=== PATIENT | male | born 1945 | race Caucasian/White ===

== ENCOUNTER 2017-01-19 09:18 | Emergency (ER) | payer MEDICARE, OTHER ==
[2017-01-19 09:31] VITALS: BP 141/63
--- NOTE | 2017-01-19 11:30 | UC ---
Respiratory Complaint HPI - HPI Summary HPI Summary: RETURNED [place] ABOUT A WEEK AGO AND THEN DEVELOPED ST, COUGH AND RED, DRAINING EYES. NO FEVER, EAR PAIN, N/V/D. SX ARE WORSE AT NIGHT AND IN THE MORNING. TRIED TO WAIT IT OUT BUT AFTER A WEEK DOES NOT FEEL IMPROVED AT ALL. IS ON IMMUNOSUPPRESSIVE THERAPY FOR CROHNS. - History of Current Complaint Chief Complaint: UCRespiratory Stated Complaint: URI Time Seen by Provider: 01/19/17 11:02 Hx Obtained From: Patient, Family/Hat Block Bench Hand - Onset/Duration: Gradual Onset, Lasting Days, Still Present Timing: Constant Severity Initially: Moderate Severity Currently: Moderate Pain Intensity: 2 Pain Scale Used: 0-10 Numeric Character: Cough: Nonproductive Aggravating Factors: Recumbent Position Alleviating Factors: Nothing Associated Signs And Symptoms: Positive: URI. Negative: Dyspnea, Fever, Chills , Pleuritic Chest Pain, Wheezing, Edema, Nasal Congestion - Allergies/Home Medications Allergies/Adverse Reactions: Allergies Allergy/AdvReac Type Severity Reaction Status Date / Time No Known Allergies Allergy Verified 01/19/17 09:31 Home Medications: Home Medications Adalimumab [Humira] 10 mg SC 01/19/17 [History] GuaiFENesin DM* [Robitussin DM*] 5 ml PO Q6H PRN 01/19/17 [History Confirmed ] predniSONE TAB* [Deltasone TAB*] 5 mg PO DAILY 01/19/17 [History Confirmed 01/19] PMH/Surg Hx/FS Hx/Imm Hx Endocrine History: Dyslipidemia Other GI/ History: CROHNS Psychological History: Depression - Surgical History Surgical History: Yes Surgery Procedure, Year, and Place: TONSILECTOMY. LYPOMA REMOVED FROM GROIN AREA - Family History Known Family History: Negative: Hypertension - Social History Alcohol Use: Daily Alcohol Amount: weekends/social Substance Use Type: None Smoking Status (MU): Never Smoked Tobacco Have You Smoked in the Last Year: No Review of Systems Constitutional: Negative Eyes: Drainage, Eye Redness ENT: Sore Throat Respiratory: Cough Cardiovascular: Negative Gastrointestinal: Negative All Other Systems Reviewed And Are Negative: Yes Physical Exam Triage Information Reviewed: Yes Appearance: Well-Appearing, No Pain Distress, Well-Nourished Vital Signs: Initial Vital Signs Temp 97.3 F 01/19/17 09:26 Pulse 83 01/19/17 09:26 Resp 18 01/19/17 09:26 BP 141/63 01/19/17 09:26 Pulse Ox 99 01/19/17 09:26 Eyes: Positive: Conjunctiva Inflamed, Discharge - CLEAR ENT: Positive: Hearing grossly normal, Pharynx normal, TMs normal Neck: Positive: Supple, Nontender, No Lymphadenopathy Respiratory Exam: Normal Cardiovascular Exam: Normal Abdomen Description: Positive: Soft Musculoskeletal: Positive: No Edema Neurological: Positive: Alert Psychological: Positive: Normal Response To Family, Age Appropriate Behavior Skin: Negative: rashes UC Diagnostic Evaluation - Laboratory O2 Sat by Pulse Oximetry: 99 Respiratory Course/Dx - Differential Dx/Diagnosis Provider Diagnoses: 1. ACUTE URI. 2. BILATERAL CONJUNCTIVITIS Discharge - Discharge Plan Condition: Stable Disposition: HOME Prescriptions: Azithromycin [Azithromycin 500 MG TAB] 500 mg PO DAILY #5 tab Ciprofloxacin 0.3% OPTH.JOE* [Cipro 0.3% Opth*] 1 drop BOTH EYES Q4H #1 btl Patient Education Materials: Upper Respiratory Infection (ED), Conjunctivitis ( ED) Referrals: Bert Montiel MD [Primary Care Provider] - If Needed Additional Instructions: YOUR SYMPTOMS MAY BE VIRALLY MEDIATED BUT GIVEN THE LENGTH OF TIME YOU HAVE BEEN ILL WE WILL COVER YOUR WITH ANTIBIOTICS. YOUR IMMUNOSUPPRESSED STATE ALSO PUTS YOU AT INCREASED RISK FOR BACTERIAL INFECTION. IF YOU START THE MEDICINE BE SURE TO TAKE IT FOR THE FULL COURSE. SEEK FOLLOW-UP WITH YOUR PCP IF YOU ARE NOT IMPROVING OVER THE NEXT 1-2 WEEKS.
== END 2017-01-19 11:46 | disposition home or self-care (01) ==
LOC: UCEAST 09:18
DX: J06.9 Acute upper respiratory infection, unspecified (principal); E78.5 Hyperlipidemia, unspecified; K50.90 Crohn's disease, unspecified, without complications; H10.9 Unspecified conjunctivitis
CPT/HCPCS: 99212; G0463

== ENCOUNTER 2017-02-15 13:41 | Emergency (ER) | payer MEDICARE, OTHER ==
[2017-02-15 14:50] VITALS: BP 109/60
[2017-02-15] MEDS ORDERED: Albuterol 2.5 MG/3 ML NEB.SOL* (0.083%) INH ONE (14:54)
--- NOTE | 2017-02-15 15:08 | UC ---
Respiratory Complaint HPI - HPI Summary HPI Summary: Patient presents s/p cruise following which he developed a cough. He was seen here and treated for respiratory infection with a zpk and reports he continues to cough. He states it is a dry cough. He denies fever, chills, chest pain, or dyspnea associated with his symptoms. He reports he is on Humira for his chrons disease. - History of Current Complaint Chief Complaint: UCRespiratory Stated Complaint: COUGH Time Seen by Provider: 02/15/17 14:45 Hx Obtained From: Patient Onset/Duration: Lasting Weeks Timing: Intermittent Episodes Severity Initially: Moderate Severity Currently: Moderate Character: Cough: Nonproductive Aggravating Factors: Deep Breaths, Recumbent Position Alleviating Factors: Upright Position, Spontaneous Resolution Associated Signs And Symptoms: Positive: URI Related History: Seasonal Allergies - Risk Factors Pulmonary Embolism Risk Factors: Negative Cardiac Risk Factors: Negative Tuberculosis Risk Factors: Negative - Allergies/Home Medications Allergies/Adverse Reactions: Allergies Allergy/AdvReac Type Severity Reaction Status Date / Time No Known Allergies Allergy Verified 02/15/17 14:37 Home Medications: Home Medications Adalimumab [Humira Pen] 40 mg SC 02/15/17 [History] Carbonyl Iron TAB* [Feosol TAB*] 45 mg PO DAILY 02/15/17 [History Confirmed ] Mercaptopurine TAB* [Purinethol TAB*] 50 mg PO 02/15/17 [History Confirmed 02/15] PMH/Surg Hx/FS Hx/Imm Hx Previously Healthy: Yes Other GI/ History: chrons - Surgical History Surgical History: Yes Surgery Procedure, Year, and Place: TONSILECTOMY. LYPOMA REMOVED FROM GROIN AREA - Family History Known Family History: Negative: Hypertension - Social History Occupation: Retired Lives: With Family Alcohol Use: None Alcohol Amount: weekends/social Substance Use Type: None Smoking Status (MU): Never Smoked Tobacco Have You Smoked in the Last Year: No - Immunization History Most Recent Influenza Vaccination: 2017 Most Recent Pneumonia Vaccination: states 3-4 yrs ago Review of Systems Constitutional: Negative Skin: Negative Eyes: Negative ENT: Negative Respiratory: Cough Cardiovascular: Negative Gastrointestinal: Negative Genitourinary: Negative Motor: Negative Neurovascular: Negative Musculoskeletal: Negative Neurological: Negative Psychological: Negative All Other Systems Reviewed And Are Negative: Yes Physical Exam Triage Information Reviewed: Yes Appearance: Well-Appearing Vital Signs: Initial Vital Signs Temp 98.2 F 02/15/17 14:42 Pulse 70 02/15/17 14:42 Resp 20 02/15/17 14:42 BP 109/60 02/15/17 14:42 Pulse Ox 95 02/15/17 14:42 Vital Signs Reviewed: Yes Eye Exam: Normal ENT Exam: Normal Neck exam: Normal Neck: Positive: 1 Respiratory: Positive: Other: - course lung sounds Cardiovascular Exam: Normal Abdominal Exam: Normal Musculoskeletal Exam: Normal Neurological Exam: Normal Psychological Exam: Normal Skin Exam: Normal UC Diagnostic Evaluation - Laboratory O2 Sat by Pulse Oximetry: 95 Respiratory Course/Dx - Course Course Of Treatment: Patient presents with complaints of persistent cough following URI for which he was treated with zpk. Chest xray was obtained and read as negative by the radiologist. He has a normal exam, and normal vital signs, and has been afebrile. He was given an albuterol nebulzier treatment in the clinic today with reported improvment while here with his cough, therefore was RX albuteril hfa 2 inh q 4 hours as needed, and I also recommend that he start takin his loratadine daily. As his symptom improve to decrease the medication. I feel his symptoms are two fold reactive airway and allergic rhinitis. If his symtpoms do not improve to f/u with PCP. He was discharge home in stable condition. - Differential Dx/Diagnosis Differential Diagnosis/HQI/PQRI: Other - reactive airway allergic rhinitis Provider Diagnoses: reactive airway. allergic rhinitis Discharge - Discharge Plan Condition: Stable Disposition: HOME Prescriptions: Albuterol 2.5MG/3ML (0.083%)* [Ventolin 2.5 MG/3 ML NEB.JOE*] 2.5 mg INH Q4H #1 [email or web address] Patient Education Materials: Allergic Rhinitis (ED), Reactive Airways Disease ( ED) Referrals: Bert Montiel MD [Primary Care Provider] -
--- NOTE | 2017-02-15 15:13 | RAD ---
INDICATION: Cough x3 weeks COMPARISON: None TECHNIQUE: PA and lateral views of the chest were obtained. FINDINGS: The heart and mediastinum are normal in size and contour. There is mild calcified atherosclerosis overlying the arch of the aorta. The lungs are grossly clear. There is no evidence of large pleural effusion. Visualized bones are normal for the patient's age. There is no radiographic evidence of free air beneath the diaphragm IMPRESSION: No radiographic evidence of acute cardiopulmonary disease.
== END 2017-02-15 16:09 | disposition home or self-care (01) ==
LOC: UCEAST 13:41
DX: J45.909 Unspecified asthma, uncomplicated (principal)
CPT/HCPCS: 71020; 99212; G0463

== ENCOUNTER 2017-03-05 13:56 | Emergency (ER) | payer MEDICARE, OTHER ==
[2017-03-05 15:27] VITALS: BP 123/56
--- NOTE | 2017-03-05 15:46 | UC ---
Neck Pain HPI - HPI Summary HPI Summary: 4-5 days of left posterior shoulder muscle zapping pain and muscle tightness-- no neuro deficits no rash other no feels fine - History of Current Complaint Chief Complaint: UCGeneralIllness Stated Complaint: STRAINED MUSCLE Time Seen by Provider: 03/05/17 15:40 Hx Obtained From: Patient Onset/Duration Of Injury/Symptoms: Days Mechanism Of Injury: No Known Trauma Timing: Constant Onset/Duration: Sudden Onset Severity: Mild Pain Intensity: 5 Pain Scale Used: 0-10 Numeric Location: Discrete At: - posterior left shoulder/above scapula Character: Spasmotic Aggravating Factors: Nothing Alleviating Factors: Nothing Associated Signs & Symptoms: Positive: Negative - Allergies/Home Medications Allergies/Adverse Reactions: Allergies Allergy/AdvReac Type Severity Reaction Status Date / Time No Known Allergies Allergy Verified 03/05/17 15:27 PMH/Surg Hx/FS Hx/Imm Hx Previously Healthy: No - crohns Endocrine History: Dyslipidemia - Surgical History Surgical History: Yes Surgery Procedure, Year, and Place: TONSILECTOMY. LYPOMA REMOVED FROM GROIN AREA - Family History Known Family History: Negative: Hypertension - Social History Occupation: Retired Lives: With Family Alcohol Use: Daily Alcohol Amount: weekends/social Substance Use Type: None Smoking Status (MU): Never Smoked Tobacco Have You Smoked in the Last Year: No - Immunization History Most Recent Influenza Vaccination: 2017 Most Recent Pneumonia Vaccination: states 3-4 yrs ago Review Of Systems Constitutional: Positive: Negative Skin: Positive: Negative Eyes: Positive: Negative ENT: Positive: Negative Respiratory: Positive: Negative Cardiovascular: Positive: Negative Gastrointestinal: Positive: Negative Genitourinary: Positive: Negative Musculoskeletal: Positive: Myalgia - above left scapula, tender to touch Neurological: Positive: Negative Psychological: Positive: Negative All Other Systems Reviewed And Are Negative: Yes Physical Exam Triage Information Reviewed: Yes Appearance: Well-Appearing, No Pain Distress, Well-Nourished Vital Signs: Initial Vital Signs Temp 97.5 F 03/05/17 15:23 Pulse 71 03/05/17 15:23 Resp 18 03/05/17 15:23 BP 123/56 03/05/17 15:23 Pulse Ox 100 03/05/17 15:23 Vital Signs Reviewed: Yes Eye Exam: Normal Eyes: Positive: Conjunctiva Clear ENT Exam: Normal ENT: Positive: Normal ENT inspection, Hearing grossly normal. Negative: Nasal congestion, Trismus, Muffled voice, Hoarse voice Dental Exam: Normal Neck exam: Normal Neck: Positive: Supple, Nontender Respiratory Exam: Normal Respiratory: Positive: Chest non-tender, No respiratory distress, No accessory muscle use Cardiovascular Exam: Normal Cardiovascular: Positive: RRR, Pulses Normal, Brisk Capillary Refill Musculoskeletal Exam: Normal Musculoskeletal: Positive: Strength Intact, ROM Intact, No Edema Neurological Exam: Normal Neurological: Positive: Alert, Muscle Tone Normal Psychological Exam: Normal Skin Exam: Normal Neck Pain Course/Dx - Course Course Of Treatment: warm compress, gentle exercise, tylenol, zanaflex, follow with Dr. Montiel - Differential Dx/Diagnosis Provider Diagnoses: Muscle spasm (suprapinadis) Discharge - Discharge Plan Condition: Stable Disposition: HOME Prescriptions: tiZANidine TAB* [Zanaflex TAB*] 2 mg PO TID PRN #20 tab PRN Reason: Muscle spasm Patient Education Materials: Muscle Spasm (ED), Warm Compress or Soak (ED) Referrals: Bert Montiel MD [Primary Care Provider] - 1 Week
== END 2017-03-05 15:55 | disposition home or self-care (01) ==
LOC: UCEAST 13:56
DX: M62.838 Other muscle spasm (principal)
CPT/HCPCS: 99212; G0463

== ENCOUNTER 2017-07-21 08:22 | Emergency (ER) | payer MEDICARE, OTHER ==
--- OUTSIDE RECORDS SUMMARY | 2017-07-21 08:30 | XMS REPORT ---
:1945 External Reference #:[id number] Author Organization [facility] [address] [place] [address] Phone [phone] Care Team Providers Name Role Phone Bert Montiel M.D. 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 Family History Date Family Member(s) Problem(s) Comments Father No Current Problems Mother No Current Problems First Brother Glaucoma Social History Type Date Description Comments Marital Status Legal Status: Occupation [employer] Work Status Retired ETOH Use Occasionally consumes alcohol Smoking Patient has never smoked Recreational Drug Use Denies Drug Use Daily Caffeine Does Not Consume Caffeine Allergies, Adverse Reactions, Alerts Date Description Reaction Status Severity Comments 06/28/2017 NKDA active Medications Medication Date Status Form Strength Qnty SIG Indications Ordering Provider Fish Oil 06/28/19 Active Capsules 1000mg 1 by Juan Carlos 18 arabella Garcia, every M.D. day Simvastatin Active Tablets 20mg Unknown Prednisone Active Tablets 5mg Unknown Humira Active PSKT 40mg/0.8ML Unknown Zinc Active Capsules 30mg Unknown Iron Active Tablets 28mg Unknown Multi Vitamin Active Tablets Unknown Calcium + D Active Chewtabs 500-1000-40 Unknown 00 mg-Unt-mcg Results Description No Information Procedures Description No Information Plan of Care 06/28/2017 - Juan Carlos Garcia M.D.H11.441 Conjunctival cysts, right eyeComments :Smoking can increase the risk of developing or worsening any eye related disease, as well as affect your overall health. If you are a smoker, we strongly recommend that you quit.If you are not a smoker, we strongly recommend that you do not start. ARTIFICIAL INTELLIGENCE SPECIALIST THE OINTMENT FROM THE PHARMACY AND BRING IT WITH YOU TO THE NEXT VISIT.H25.13 Age-related nuclear cataract, bilateralComments:You have been diagnosed with cataracts. If you are happy with your vision as it is now, then we willsee you at your next scheduled appointment. If you feel like your vision is getting worse before your scheduled appointment, please call Sharonda or Josselin at [phone].H40.053 Ocular hypertension, bilateralComments:You have Ocular Hypertension in both eyes. This means that your eye pressure is higher than average, but you have not been diagnosed with Glaucoma.
--- OUTSIDE RECORDS SUMMARY | 2017-07-21 08:30 | XMS REPORT ---
:1945 External Reference #:[id number] Author Organization [facility] Address [address] [place] [address] Phone [phone] Care Team Providers Name Role Phone Bert Montiel M.D. 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 Active Family History Date Family Member(s) Problem(s) Comments Father Cataract Father Eye Visual Problems Mother Eye Visual Problems First Brother Glaucoma First Brother Eye Visual Problems First Brother Nystagmus Social History Type Date Description Comments Marital Status Legal Status: Occupation [employer] Work Status Retired ETOH Use Occasionally consumes alcohol Smoking Patient has never smoked Recreational Drug Use Denies Drug Use Daily Caffeine Does Not Consume Caffeine Allergies, Adverse Reactions, Alerts Date Description Reaction Status Severity Comments 06/28/2017 NKDA active Medications Medication Date Status Form Strength Qnty SIG Indications Ordering Provider Fish Oil 06/27/ Active Capsules 1000mg 1 by mouth Juan Carlos Archuleta every day Mary Garcia Simvastatin / Active Tablets 20mg Unknown Prednisone 00/ Active Tablets 5mg Unknown Humira / Active PSKT 40mg/0.8ML Unknown 0000 Iron / Active Tablets 28mg Unknown 0000 Multi Vitamin / Active Tablets Unknown 0000 Calcium + D / Active Chewtabs 500-1000-4 Unknown 0000 0mg-Unt-mc g Venlafaxine / Active Tablets ER 150mg Once a day Breiman, HCL ER 0000 24HR Bert Hernandez Erythromycin 06/28/ Hx Ointment 5mg/GM 1Tube apply to Juan Carlos 2017 - surgical Radha, 07/17/ site three M.D. 2018 times a day Zinc / Hx Capsules 30mg Unknown 0000 - 2017 Vital Signs Date Vital Result Comment 07/04/2017 BP Systolic 114 mmHg BP Diastolic 76 mmHg Heart Rate 83 /min Respiratory Rate 16 /min Results Description No Information Procedures Date CPT Code Description Status 07/04/2017 05387 Biopsy Conjunctiva Completed 06/28/2017 23562 New Patient Comprehensive Exam Completed 06/28/2017 64530 Pachymetry Completed Plan of Care 07/18/2017 - Juan Carlos Garcia M.D.H11.441 Conjunctival cysts, right eyeComments :Smoking can increase the risk of developing or worsening any eye related disease, as well as affect your overall health. If you are a smoker, we strongly recommend that you quit.If you are not a smoker, we strongly recommend that you do not start.H43.811 Vitreous degeneration, right eyeComments:You have a Posterior Vitreous Detachment in your right eye. If you have any changes in your floatersor flashing lights, please contact this office.H25.13 Age-related nuclear cataract, bilateralComments:You have been diagnosed with cataracts. If you are happy with your vision as it is now, then we willsee you at your next scheduled appointment. If you feel like your vision is getting worse before your scheduled appointment, please call Sharonda Schwab at [phone].C54.662 Ocular hypertension, bilateralComments:You have Ocular Hypertension in both eyes. This means that your eye pressure is higher than average, but you have not been diagnosed with Glaucoma.Follow up:WITH DR. RENAE SCHEDULED
[2017-07-21 08:33] VITALS: BP 109/68
--- NOTE | 2017-07-21 14:08 | UC ---
Hip/Pelvis Pain - HPI Summary HPI Summary: States that 2 weeks ago he had eye surgery after which he felt an intense pain on left hip. He could not sleep that night and took vicodin which alleviated pain. He states that he was fine for a week after that. But then last Sunday his knee buckled and he fell on left knee as he was playing tennis. He has continued playing tennis ever since and hip does not bother him or limit his activities during the day but at night he cannot find a comfortable position. It is an ache in the lateral left hip which rarely travels down the back of the leg 4/10 in intensity - History Of Current Complaint Chief Complaint: UCGeneralIllness Stated Complaint: HIP PAIN Time Seen by Provider: 07/21/17 09:04 Hx Obtained From: Patient Onset/Duration: Sudden Onset, Lasting Weeks Severity Initially: Mild Severity Currently: Moderate Pain Intensity: 5 Pain Scale Used: 0-10 Numeric Character Of Pain: Aching Aggravating Factor(s): Other - recumbence Alleviating Factor(s): Other - activity Associated Signs And Symptoms: Positive: Negative - Risk Factors Septic Arthritis Risk Factor: Negative - Allergies/Home Medications Allergies/Adverse Reactions: Allergies Allergy/AdvReac Type Severity Reaction Status Date / Time No Known Allergies Allergy Verified 07/21/17 08:26 PMH/Surg Hx/FS Hx/Imm Hx Previously Healthy: Yes Endocrine History: Dyslipidemia GI/ History: Other - crohn's disease Other GI/ History: Crohn's disease Psychological History: Depression - Surgical History Surgical History: Yes Surgery Procedure, Year, and Place: TONSILECTOMY,eye =surgery. LYPOMA REMOVED FROM GROIN AREA - Family History Known Family History: Negative: Hypertension - Social History Alcohol Use: Daily Alcohol Amount: weekends/social Substance Use Type: None Smoking Status (MU): Never Smoked Tobacco Have You Smoked in the Last Year: No - Immunization History Most Recent Influenza Vaccination: 2017 Most Recent Pneumonia Vaccination: states 3-4 yrs ago Review of Systems Constitutional: Negative Musculoskeletal: Myalgia All Other Systems Reviewed And Are Negative: Yes Physical Exam Triage Information Reviewed: Yes Appearance: Well-Appearing, No Pain Distress, Well-Nourished Vital Signs: Initial Vital Signs Temp 97.6 F 07/21/17 08:30 Pulse 82 07/21/17 08:30 Resp 18 07/21/17 08:30 BP 109/68 07/21/17 08:30 Pulse Ox 100 07/21/17 08:30 Vital Signs Reviewed: Yes Eyes: Positive: Conjunctiva Clear ENT: Positive: Hearing grossly normal, Pharynx normal, TMs normal Neck: Positive: Supple, Nontender, No Lymphadenopathy Respiratory: Positive: Chest non-tender, Lungs clear, Normal breath sounds, No respiratory distress Cardiovascular: Positive: RRR, No Murmur, Pulses Normal, Brisk Capillary Refill Musculoskeletal: Positive: Strength Intact, ROM Intact, No Edema - SLR negative , hip FROM, no distal edemas, DTR symmetrical and present, tender on lateral aspect of left trochanteric prominence. Several lipomas noticed on left leg Hip Injury Course/Dx - Course Course Of Treatment: discussed with patient several medication choices, will not take NSAIDS due to Crohn's disease and tylenol is not working, ache is sometimes tingling , will try with low dose neurontin and may gradually increase dose if tolerated at night - Differential Dx/Diagnosis Provider Diagnoses: left trochanteric bursitis Discharge - Sign-Out/Discharge Documenting (check all that apply): Discharge - Discharge Plan Condition: Stable Disposition: HOME Prescriptions: Gabapentin CAP(*) [Neurontin 100 mg CAP(*)] 100 mg PO BEDTIME PRN 20 Days #60 cap PRN Reason: Pain Patient Education Materials: Hip Bursitis (ED) Referrals: Bert Montiel MD [Primary Care Provider] - - Billing Disposition and Condition Condition: STABLE Disposition: HOME
== END 2017-07-21 09:50 | disposition home or self-care (01) ==
LOC: UCEAST 08:22
DX: M70.62 Trochanteric bursitis, left hip (principal); Y93.89 Activity, other specified; E78.5 Hyperlipidemia, unspecified; K50.90 Crohn's disease, unspecified, without complications; F32.9 Major depressive disorder, single episode, unspecified
CPT/HCPCS: 99212; G0463